=== PATIENT | female | born 1935 | race Caucasian/White ===

== ENCOUNTER 2017-07-31 14:47 | Emergency (ER) | payer OTHER ==
[~2017-07-31] VITALS: Ht 152.4 cm; Wt 68.4 kg
[2017-07-31 16:31] LABS: HEMATOCRIT 42.2 % (36.0-46.0); MCH 31.6 PG (29.0-34.0); MCHC 32.5 G/DL (30.0-36.0); MCV 97.5 FL (83-99); MEAN PLAT.VOLUME 9.3 uM^3 (9.5-12.4); PLATELET COUNT 238 K/uL (156-360); RBC DIS.WIDTH-CV 11.8 % (11.8-14.6); RBC DIS.WIDTH-SD 42.9 % (39-53); RED BLOOD COUNT 4.33 M/uL (3.80-5.20); WHITE BLOOD COUNT 5.2 K/uL (4.1-10.2)
[2017-07-31 16:41] LABS: CHLORIDE 103 mEq/L (99-109); POTASSIUM 4.1 mEq/L (3.7-5.4); SODIUM 139 mEq/L (136-147)
[2017-07-31 16:43] LABS: GLUCOSE 103 mg/dL (70-99)
[2017-07-31 16:45] LABS: ANION GAP 8 MEQ/L (2-14); TOTAL BILIRUBIN 0.5 mg/dL (0.0-1.0)
[2017-07-31 16:47] LABS: ALKALINE PHOSPHATASE 98 IU/L (3-129); GFR ESTIMATE (CALCULATED) > 59 mL/min/
[2017-07-31 16:48] LABS: UREA NITROGEN (BUN) 15 mg/dL (9-23)
[2017-07-31] MEDS ORDERED: MIRALAX119 GM PO (21:54)
[2017-07-31 22:26] VITALS: BP 181/81
== END 2017-07-31 22:27 | disposition home or self-care (01) ==
LOC: EME 14:47
PROVIDERS: Emergency Medicine
DX: K56.41 Fecal impaction (principal); G30.9 Alzheimer's disease, unspecified; F02.80 Dementia in other diseases classified elsewhere, unspecified severity, without behavioral disturbance, psychotic disturbance, mood disturbance, and anxiety
CPT/HCPCS: 74177; 80053; 83605; 85027; 93005; 99281; 99284

== ENCOUNTER 2017-08-08 08:37 | Emergency (ER) | payer OTHER ==
[~2017-08-08] VITALS: Ht 154.9 cm; Wt 68.0 kg
[~2017-08-08 08:37] MED LIST: MIRALAX119 GM PO
[2017-08-08 09:42] LABS: HEMATOCRIT 43.5 % (36.0-46.0); HEMOGLOBIN 14.3 G/DL (11.9-15.5); MCH 31.8 PG (29.0-34.0); MCHC 32.9 G/DL (30.0-36.0); MCV 96.9 FL (83-99); PLATELET COUNT 178 K/uL (156-360); RBC DIS.WIDTH-CV 12.1 % (11.8-14.6); RBC DIS.WIDTH-SD 43.1 % (39-53); RED BLOOD COUNT 4.49 M/uL (3.80-5.20); WHITE BLOOD COUNT 4.3 K/uL (4.1-10.2)
[2017-08-08 09:51] LABS: ALBUMIN 3.6 g/dL (3.2-4.8); CHLORIDE 102 mEq/L (99-109); SODIUM 136 mEq/L (136-147)
[2017-08-08 09:53] LABS: GLUCOSE 88 mg/dL (70-99); TOTAL PROTEIN 7.8 g/dL (6.4-8.3)
[2017-08-08 09:55] LABS: TOTAL BILIRUBIN 0.5 mg/dL (0.0-1.0)
[2017-08-08 09:56] LABS: ALKALINE PHOSPHATASE 96 IU/L (3-129)
[2017-08-08 09:57] LABS: CREATININE 0.7 mg/dL (0.6-1.3); GFR ESTIMATE (CALCULATED) > 59 mL/min/
[2017-08-08 09:58] LABS: AST (GOT) 48 IU/L (2-34); UREA NITROGEN (BUN) 12 mg/dL (9-23)
[2017-08-08 10:00] LABS: ALT (GPT) 18 IU/L (3-49)
[2017-08-08 10:01] LABS: POTASSIUM ND mEq/L (3.7-5.4)
[2017-08-08 11:05] LABS: APPEARANCE CLEAR ((CLEAR)); BILIRUBIN NEGATIVE; BLOOD NEGATIVE; COLOR YELLOW ((YELLOW)); GLUCOSE (STRIP) NEGATIVE; KETONES 5; LEUKOCYTES NEGATIVE; NITRITE NEGATIVE; PROTEIN (STRIP) NEGATIVE; SPECIFIC GRAVITY 1.014 (1.000-1.030); UCUL ADDED? NO; UROBILINOGEN 0.2 MG/DL (0.2-1.0)
[2017-08-08] MEDS ORDERED: ADULT SUPPOSIT1 EACH PR (14:17)
[2017-08-08 14:56] VITALS: BP 149/79
== END 2017-08-08 14:58 | disposition home or self-care (01) ==
LOC: EME 08:37
PROVIDERS: Nurse Practitioner Family
DX: K59.00 Constipation, unspecified (principal); F02.80 Dementia in other diseases classified elsewhere, unspecified severity, without behavioral disturbance, psychotic disturbance, mood disturbance, and anxiety; G30.9 Alzheimer's disease, unspecified; F17.200 Nicotine dependence, unspecified, uncomplicated; Z71.6 Tobacco abuse counseling
CPT/HCPCS: 74177; 80053; 81003; 84999; 85027; 99281; 99285; J7030